=== PATIENT | female | born 1995 | race African-American/Black ===

== ENCOUNTER 2017-04-04 19:12 | Emergency (ER) | payer SELFPAY ==
[~2017-04-04] VITALS: Ht 172.7 cm; Wt 71.0 kg
[2017-04-04 19:17] VITALS: BP 127/72; PULSE 117; RESP 16; TEMP 98.8; O2SAT 100
== END 2017-04-04 22:23 | disposition left against medical advice (07) ==
LOC: NED 19:12
DX: R51 Headache (principal)
CPT/HCPCS: 99281

== ENCOUNTER 2017-04-16 16:45 | Emergency (ER) | payer SELFPAY ==
[2017-04-16 16:56] VITALS: BP 142/95; PULSE 83; RESP 18; TEMP 98.7; O2SAT 95
[2017-04-16] MEDS ORDERED: SODIUM CHLORIDE 0.9% FLUSH 10 ML FLUSH IVF PRN (17:45)
--- NOTE | 2017-04-16 17:50 | PD ---
HPI Chief Complaint: Numbness/Tingling Time Seen by Provider: 17:35 Travel History International Travel<30 days: No Contact w/Intl Traveler<30days: No Traveled to known affect area: No History of Present Illness HPI 21-year-old female presents to the ED for evaluation of an episode of numbness and tingling of the upper extremities, lower extremities accompanied by dizziness. Onset at rest while working today. She denies accompanying headache , vision changes, chest pain, palpitations, shortness of breath. She denies recent history of abdominal pain, dysuria. She states last menstrual period was in December. It is unusual for her to miss periods. She states that her mom from a brain aneurysm approximately 10 months ago. She states that she is currently being treated for depression. Endorses one similar episode one week ago. She denies urinary or fecal incontinence and these episodes. She endorses a history of frequent headaches, no headache today. PFS Past Medical History Medical History: Denies Significant Hx Immunizations Current: Yes ?: Not Past Surgical History Surgical History: No Previous Surgery Social History Alcohol Use: Yes ([facility]) Tobacco Use: No Substance Use: No Allergies-Medications (Allergen,Severity, Reaction): Coded Allergies: No Known Allergies (Unverified , 04/04/17) Review of Systems ROS Limitations: Other: (exam limited, patient seen and ambulance hallway) Except as stated in HPI: all other systems reviewed are Neg Physical Exam Exam Limitations: Other: (Limited exam, patient seen in the ambulance hallway) Narrative GENERAL: Well-nourished, well-developed petite -[place] female in no acute distress. SKIN: Focused skin assessment warm/dry. HEAD: Normocephalic. EYES: No scleral icterus. No injection or drainage. NECK: Supple, trachea midline. No JVD or lymphadenopathy. CARDIOVASCULAR: Regular rate and rhythm without murmurs, gallops, or rubs. RESPIRATORY: Breath sounds clear and equal bilaterally. No accessory muscle use. GASTROINTESTINAL: Abdomen soft, non-tender, nondistended. Active bowel sounds. MUSCULOSKELETAL: No cyanosis, or edema. This actually spontaneously. NEUROLOGICAL: Awake and alert. Cranial nerves II through XII intact. Motor and sensory grossly within normal limits. Five out of 5 muscle strength in all muscle groups. Normal speech. BACK: Nontender without obvious deformity. No CVA tenderness. Data Data Last Documented VS Vital Signs Date Time Temp Pulse Resp B/P (MAP) Pulse Ox O2 Delivery O2 Flow Rate FiO2 04/16/17 21:57 68 16 129/68 (88) 100 Room Air 04/16/17 16:56 98.7 Orders Orders Electrocardiogram (04/16/17 17:42) Basic Metabolic Panel (Bmp) (04/16/17 17:42) Ed Urine Pregnancytest Poc (04/16/17 17:42) Complete Blood Count With Diff (04/16/17 17:42) Urinalysis - C+S If Indicated (04/16/17 17:42) Iv Access Insert/Monitor (04/16/17 17:42) Sodium Chloride 0.9% Flush (Ns Flush) (04/16/17 17:45) Acetaminophen (Tylenol) (04/16/17 18:45) Ct Brain W/O Iv Contrast(Rout) (04/16/17 ) Ketorolac Inj (Toradol Inj) (04/16/17 20:30) Prochlorperazine Inj (Compazine Inj) (04/16/17 20:30) Diphenhydramine Inj (Benadryl Inj) (04/16/17 20:30) Sodium Chlorid 0.9% 500 Ml Inj (Ns 500 M (04/16/17 21:15) Ed Discharge Order (04/16/17 22:16) Labs Laboratory Tests Test 04/16/17 17:59 White Blood Count 4.1 TH/MM3 Red Blood Count 4.27 MIL/MM3 Hemoglobin 12.6 GM/DL Hematocrit 37.7 % Mean Corpuscular Volume 88.3 FL Mean Corpuscular Hemoglobin 29.6 PG Mean Corpuscular Hemoglobin Concent 33.5 % Red Cell Distribution Width 14.2 % Platelet Count 183 TH/MM3 Mean Platelet Volume 8.7 FL Neutrophils (%) (Auto) 46.9 % Lymphocytes (%) (Auto) 42.3 % Monocytes (%) (Auto) 9.5 % Eosinophils (%) (Auto) 0.9 % Basophils (%) (Auto) 0.4 % Neutrophils # (Auto) 1.9 TH/MM3 Lymphocytes # (Auto) 1.7 TH/MM3 Monocytes # (Auto) 0.4 TH/MM3 Eosinophils # (Auto) 0.0 TH/MM3 Basophils # (Auto) 0.0 TH/MM3 CBC Comment DIFF FINAL Differential Comment Urine Color YELLOW Urine Turbidity CLEAR Urine pH 6.0 Urine Specific [place] 1.035 Urine Protein TRACE mg/dL Urine Glucose (UA) NEG mg/dL Urine Ketones NEG mg/dL Urine Occult Blood SMALL Urine Nitrite NEG Urine Bilirubin NEG Urine Urobilinogen 2.0 MG/DL Urine Leukocyte Esterase NEG Urine WBC 1 /hpf Urine Squamous Epithelial Cells 2 /hpf Urine Mucus MANY /lpf Microscopic Urinalysis Comment CULT NOT INDICATED Blood Urea Nitrogen 16 MG/DL Creatinine 0.93 MG/DL Random Glucose 52 MG/DL Calcium Level 8.4 MG/DL Sodium Level 141 MEQ/L Potassium Level 4.0 MEQ/L Chloride Level 105 MEQ/L Carbon Dioxide Level 28.9 MEQ/L Anion Gap 7 MEQ/L Estimat Glomerular Filtration Rate 92 ML/MIN [facility] Medical Decision Making Medical Screen Exam Complete: Yes Emergency Medical Condition: Yes Differential Diagnosis versus metabolic derangement versus migraine headache versus anxiety versus less likely ICH versus other Narrative Course 21-year-old female presents to the ED for evaluation of an episode of numbness and tingling of the upper and lower extremities accompanied by dizziness. Onset at rest while working today. She denies accompanying headache, vision changes, chest pain, palpitations, shortness of breath. Endorses a similar episode one week ago without evaluation. Endorses history frequent headaches. She denies recent history of abdominal pain, dysuria. Denies fecal or urinary incontinence during these episodes. She states last menstrual period was in December. She states that her mom from a brain aneurysm approximately 10 months ago. Patient's BP 142/95 on presentation. Physical exam reveals a nontoxic-appearing female in no acute distress. No focal neuro deficits. Chest CTAB. Abdomen soft and nontender. ED urine test negative. CBC unremarkable. CMP with no concerning abnormalities. UA: No culture indicated. CT brain: Negative noncontrast brain CT per radiology read. During the course of evaluation the patient developed a 7/10 generalized headache. She denies vision changes, nausea. She was administered 500 mg Tylenol. On recheck she reports no improvement of her symptoms. We'll treat with Compazine, Benadryl and Toradol and IV fluids. On recheck BP is 129/68. Patient reports resolution of her symptoms. She is hungry and asking to be discharged. She is instructed to follow-up with her primary care provider or neurologist for further evaluation of her chronic headaches. She is stable and discharged home Diagnosis Primary Impression: Headache Qualified Codes: R51 - Headache Additional Impression: Numbness and tingling of both lower extremities Referrals: Neurologist Primary Care Physician Patient Instructions: General Instructions, Migraine Headache (ED) Additional Instructions: Rest, hydrate. Avoid known stressors as possible. Follow-up with your primary care provider or neurologist for further evaluation of chronic headaches. Return to the ED for worsening symptoms or any urgent or emergent medical condition. Disposition: 01 DISCHARGE HOME Condition: Stable Kanika Catalan Apr 16, 2017 17:50
[2017-04-16] MEDS ORDERED: ACETAMINOPHEN 500 MG CPLT PO ONE (18:45)
[2017-04-16 19:40] LABS: AUTOMATED NEUTROPHIL # 1.9 TH/MM3 (1.8-7.7); BASOPHIL % 0.4 % (0.0-2.0); EOSINOPHIL % 0.9 % (0.0-4.0); HEMATOCRIT 37.7 % (35.0-46.0); HEMOGLOBIN 12.6 GM/DL (11.6-15.3); LYMPH % 42.3 % (9.0-44.0); LYMPHOCYTE # 1.7 TH/MM3 (1.0-4.8); MEAN CELL VOLUME 88.3 FL (80.0-100.0); MEAN CORPUSCULAR HEMOGLOBIN 29.6 PG (27.0-34.0); MEAN CORPUSCULAR HGB CONC 33.5 % (32.0-36.0); MEAN PLATELET VOLUME 8.7 FL (7.0-11.0); MONO % 9.5 % (0.0-8.0); MONOCYTE # 0.4 TH/MM3 (0-0.9); NEUT % 46.9 % (16.0-70.0); PLATELET COUNT 183 TH/MM3 (150-450); RED BLOOD COUNT 4.27 MIL/MM3 (4.00-5.30); RED CELL DISTRIBUTION WIDTH 14.2 % (11.6-17.2); WHITE BLOOD COUNT 4.1 TH/MM3 (4.0-11.0)
[2017-04-16 19:41] LABS: BILIRUBIN, URINE NEG (NEG); BLOOD, URINE SMALL (NEG); GLUCOSE,URINE NEG (NEG); KETONE, URINE NEG (NEG); MUCUS URINE MANY /lpf (OCC); NITRITE,URINE NEG (NEG); SQUAMOUS EPITHELIAL CELL URINE 2 /hpf (0-5); URINE COLOR YELLOW (YELLW/STRAW); URINE LEUKOCYTE ESTERASE NEG (NEG)
[2017-04-16 19:56] LABS: BICARBONATE 28.9 MEQ/L (21.0-32.0); CALCIUM 8.4 MG/DL (8.5-10.1); CREATININE 0.93 MG/DL (0.50-1.00)
--- NOTE | 2017-04-16 20:05 | RADRPT ---
EXAM DATE/TIME: 04/16/2017 19:25 [facility] COMPARISON: No previous studies available for comparison. INDICATIONS : Headaches with weakness. RADIATION DOSE: 40.67 CTDIvol (mGy) MEDICAL HISTORY : None SURGICAL HISTORY : None. ENCOUNTER: Initial ACUITY: 1 day PAIN SCALE: 9/10 LOCATION: Bilateral cranial TECHNIQUE: Multiple contiguous axial images were obtained of the head. Using automated exposure control and adj ustment of the mA and/or kV according to patient size, radiation dose was kept as low as reasonably a chievable to obtain optimal diagnostic quality images. DICOM format image data is available electro nically for review and comparison. FINDINGS: CEREBRUM: The ventricles are normal for age. No evidence of midline shift, mass lesion, hemorrhage or acute in farction. No extra-axial fluid collections are seen. POSTERIOR FOSSA: The cerebellum and brainstem are intact. The 4th ventricle is midline. The cerebellopontine angle i s unremarkable. EXTRACRANIAL: The visualized portion of the orbits is intact. SKULL: The calvaria is intact. No evidence of skull fracture. CONCLUSION: 1. Negative noncontrast CT brain. Rodrigue Amin MD on April 16, 2017 at 20:03 Board Certified Radiologist. This report was verified electronically.
[2017-04-16] MEDS ORDERED: KETOROLAC TROMETHAMINE 30 MG/ML (IVP) VIAL IVP ONE (20:30)
[2017-04-16] MEDS ORDERED: diphenhydrAMINE HCL 50 MG/ML VIAL IVP ONE (20:30)
[2017-04-16] MEDS ORDERED: PROCHLORPERAZINE INJ 10 MG/2 ML VIAL IVP ONE (20:30)
[2017-04-16] MEDS ORDERED: SODIUM CHLORID 0.9% 500 ML INJ 500 ML IV ONE (21:15)
[2017-04-16 21:57] VITALS: BP 129/68; PULSE 68; RESP 16; O2SAT 100
--- NOTE | 2017-04-17 13:58 | EKG ---
Date Performed: 04/16/2017 Time Performed: 18:26:18 PTAGE: 21 years EKG: SINUS BRADYCARDIA NO PREVIOUS TRACING DOCTOR: Eriberto Bhagat Interpretating Date/Time 04/17/2017 13:56:27
== END 2017-04-16 22:39 | disposition home or self-care (01) ==
LOC: NEDAMB 16:45 → NEPD 22:39
DX: R51 Headache (principal); R20.2 Paresthesia of skin; R42 Dizziness and giddiness
CPT/HCPCS: 70450; 80048; 81001; 84703; 85025; 93005; 96374; 96375; 99285; J0780; J1200; J1885; J7040